=== PATIENT | female | born 1995 ===

== ENCOUNTER 2017-02-15 09:09 | Emergency (ER) | payer OTHER ==
[2017-02-15 09:25] VITALS: BMI 24.5
[2017-02-15 09:26] VITALS: RESP 18; TEMP 97.8; O2SAT 100
[2017-02-15 10:15] LABS: RBC URINE < 1 /hpf (0-3); URINE BILIRUBIN NEGATIVE (NEGATIVE); URINE BLOOD NEGATIVE (NEGATIVE); URINE COLOR Yellow (YELLOW); URINE GLUCOSE (UA) NORMAL (Normal); URINE KETONE NEGATIVE (NEGATIVE); URINE LEUKOCYTE ESTERASE NEG Leu/uL (Negative); URINE PROTEIN NEGATIVE (NEGATIVE); URINE UROBILINOGEN NORMAL mg/dL (0.2-1.0); WBC URINE 1 /hpf (0-5)
[2017-02-15 10:48] LABS: BASO # 0.1 K/uL (0.0-0.2); BASO % 0.7 % (0.0-2.0); EOS # 0.1 K/uL (0.0-0.7); HEMATOCRIT 41.2 % (34.0-47.0); LYMPH # 2.1 K/uL (1.0-4.3); LYMPH % 17.6 % (20.0-40.0); MEAN CELL VOLUME 86.6 fL (81.0-99.0); MEAN CORPUSCULAR HEMOGLOBIN 28.1 pg (27.0-31.0); MEAN CORPUSCULAR HGB CONC 32.5 g/dL (33.0-37.0); MEAN PLATELET VOLUME 8.6 fL (7.2-11.7); MONO # 0.6 K/uL (0.0-0.8); MONO % 5.3 % (0.0-10.0); RED CELL DISTRIBUTION WIDTH 14.5 % (11.5-14.5); WHITE BLOOD COUNT 11.8 K/uL (4.8-10.8)
--- NOTE | 2017-02-15 11:37 | C.PDOC ---
History Of Present Illness 21 y/o female, early , c/o suprapubic abdominal pain. Denies fevers, chills, nausea, vomiting, diarrhea, vaginal bleeding/discharge, urinary symptoms. Time Seen by Provider: 02/15/17 10:06 Chief Complaint (Nursing): Flu-like Symptoms History Per: Patient History/Exam Limitations: no limitations Onset/Duration Of Symptoms: Days Current Symptoms Are (Timing): Still Present Quality Of Discomfort: "Pain" Associated Symptoms: denies: Fever, Nausea, Vomiting, Diarrhea, Urinary Symptoms Recent travel outside of the [place]: No Abnormal Vaginal Bleeding: No Past Medical History Reviewed: Historical Data, Nursing Documentation, Vital Signs Vital Signs: Last Vital Signs Temp 97.8 F 02/15/17 09:25 Pulse 77 02/15/17 09:25 Resp 18 02/15/17 09:25 BP 110/70 02/15/17 09:25 Pulse Ox 100 02/15/17 12:23 - Medical History PMH: No Chronic Diseases Family History: States: Unknown Family Hx - Social History Hx Alcohol Use: No Hx Substance Use: No - Immunization History Hx Tetanus Toxoid Vaccination: No Hx Influenza Vaccination: No Hx Pneumococcal Vaccination: No Review Of Systems Except As Marked, All Systems Reviewed And Found Negative. Constitutional: Negative for: Fever, Chills Respiratory: Negative for: Cough Gastrointestinal: Positive for: Abdominal Pain. Negative for: Nausea, Vomiting Genitourinary: Negative for: Dysuria, Hematuria, Vaginal Discharge, Vaginal Bleeding Skin: Negative for: Rash Physical Exam - Physical Exam Appears: Non-toxic, No Acute Distress Skin: Normal Color, Warm, Dry Head: Atraumatic, Normacephalic Oral Mucosa: Moist Chest: Symmetrical Cardiovascular: Rhythm Regular, No Murmur Respiratory: Normal Breath Sounds, No Rales, No Rhonchi, No Wheezing Gastrointestinal/Abdominal: Soft, Tenderness (mild, suprapubic), No Distention, No Guarding, No Rebound Back: Normal Inspection Extremity: Normal ROM Neurological/Psych: Oriented x3 ED Course And Treatment - Laboratory Results Result Diagrams: 02/15/17 10:40 02/15/17 10:40 Lab Interpretation: Normal (QHCG 1300, O+, UA neg.) Urine POC: Positive O2 Sat by Pulse Oximetry: 100 (RA) Pulse Ox Interpretation: Normal - CT Scan/US Ultrasound 1st Tri Other Rad Studies (CT/US): Read By Radiologist, Radiology Report Reviewed CT/US Interpretation: Impression: Small cystic structure favored to reflect an intrauterine gestational sac measures approximately 0.2 cm, too small for gestational age calculation. No evidence of yolk sac or pole at this time. Recommend clinical correlation including quantitative beta HCG and follow- up as indicated. 2.6 x 2.4 x 3.2 cm probable right ovarian corpus luteal cyst. Progress Note: Labs, ultrasound ordered. Reevaluation Time: 12:28 Reassessment Condition: Improved Medical Decision Making Medical Decision Making: early preg, ? threatened AB with crampy pre-menstrual discomforts. Disposition Doctor Will See Patient In The: Office Counseled Patient/Family Regarding: Studies Performed, Diagnosis - Disposition Referrals: Clinic,Med Surg [Primary Care Provider] - Disposition: HOME/ ROUTINE Disposition Time: 12:29 Condition: GOOD Forms: [facility] ([place]) - Clinical Impression Clinical Impression: , Threatened - Scribe Statement The provider has reviewed the documentation as recorded by the Scribe SM All medical record entries made by the Scribe were at my direction and personally dictated by me. I have reviewed the chart and agree that the record accurately reflects my personal performance of the history, physical exam, medical decision making, and the department course for this patient. I have also personally directed, reviewed, and agree with the discharge instructions and disposition.
[2017-02-15 11:41] LABS: CHLORIDE 101 mmol/L (98-107); POTASSIUM 4.1 mmol/L (3.6-5.2); SODIUM 134 mmol/L (132-148)
[2017-02-15 11:43] LABS: ALB/GLOB RATIO 1.5 (1.0-2.1); ALKALINE PHOSPHATASE 64 U/L (38-126); AST/SGOT 22 U/L (14-36); BILIRUBIN,TOTAL 0.6 mg/dL (0.2-1.3); CARBON DIOXIDE 22 mmol/L (22-30); GFR AFRICAN-AMERICAN > 60; TOTAL PROTEIN 7.4 g/dL (6.3-8.3)
[2017-02-15 11:44] LABS: ALT/SGPT 29 U/L (9-52); BLOOD UREA NITROGEN 9 mg/dL (7-17); GLUCOSE,RANDOM 89 mg/dL (65-105)
--- NOTE | 2017-02-15 11:49 | US ---
Indication: early preg, pain, ? ectopic Comparison: None available. Technique: 1st trimester ultrasound Findings: The uterus measures approximately 9.3 x 4.9 x 6.4 cm. Anteverted. Cervix length measures approximately 3.6 cm. Small cystic structure favored to reflect an intrauterine gestational sac measures approximately 0.2 cm, too small for gestational age calculation. No evidence of yolk sac or pole at this time. The right ovary measures 4.0 x 3.0 x 3.5 cm and contains 2.6 x 2.4 x 3.2 cm probable corpus luteal cyst. The left ovary measures 2.7 x 1.6 x 2.4 cm. Blood flow was demonstrated to both ovaries. Small to moderate pelvic free fluid. Impression: Small cystic structure favored to reflect an intrauterine gestational sac measures approximately 0.2 cm, too small for gestational age calculation. No evidence of yolk sac or pole at this time. Recommend clinical correlation including quantitative beta HCG and follow-up as indicated. 2.6 x 2.4 x 3.2 cm probable right ovarian corpus luteal cyst.
[2017-02-15 12:35] VITALS: BP 118/65; PULSE 75
== END 2017-02-15 12:36 | disposition home or self-care (01) ==
LOC: C.ER 09:09 → SUPCPDRO 09:09 → C.ER 12:36
DX: O20.0 Threatened abortion (principal)